=== PATIENT | female | born 1960 | race Caucasian/White ===

== ENCOUNTER → 2021-06-29 | Outpatient (CLI) | payer MEDICARE, OTHER | LOC: ECHO 08:31 → US 10:30 → ECHO 12:30 | DX: G45.9 Transient cerebral ischemic attack, unspecified (principal) | CPT/HCPCS: ECHO; 93306; 93880 ==

== ENCOUNTER → 2021-07-12 | Outpatient (CLI) | payer MEDICARE, OTHER | LOC: CT 07:28 | DX: I67.1 Cerebral aneurysm, nonruptured (principal) | CPT/HCPCS: 70496; Q9967 ==